=== PATIENT | female | born 1980 | race Hispanic/Latino ===

== ENCOUNTER 2017-05-26 12:19 | Emergency (ER) | payer BC ==
[2017-05-26 13:40] VITALS: BMI 29.9
--- NOTE | 2017-05-26 13:55 | OBHP ---
Datetime: 05/26/2017 13:30 IP Adm Impression: Term, intrauterine ; No Active Labor; Intact Membranes IP Chief Complaint Other: Elevated BP in officee IP Admit Plan: Observation/Evaluation Admit Comment, IP Provider: 36yo G1PO IUP @ 39w sent by PMD for elevted BP noted in office. No FOSTER; no Visual dist PMH: denies PSH: denies NKA PSOH: denies smoking ETHO drugs POBGYNH: HPV; A: IUP at 39w Hx elevated BP - currentlyt no evated BP PLAN: check labs and monitor BP> Case d/w PMD: if discharged home follow up in office this pre-eclampsia warning General - PN: Normal Presentation-Admit: Vertex FHR - Baseline A Provider: 130 Pool Provider: Negative IP Hx Assessment: The History has been Reviewed and is Current EGA AdmitDate IP: 39.2 Vital Signs Provider: Reviewed IP Chief Complaint: Other NICHD Variability Prov Fetus A: Moderate 6-25bpm NICHD Accel Fetus A IP Provider: 15X15 FHR Category Provider Fetus A: Category I NICHD Decel Fetus A IP Provider: None
[2017-05-26 14:11] LABS: HEMOGLOBIN 10.6 g/dL (12.0-16.0); MEAN CORPUSCULAR HEMOGLOBIN 28.7 pg (27.0-31.0); MEAN CORPUSCULAR HGB CONC 33.3 g/dL (33.0-37.0); RBC 3.71 Mil/uL (3.80-5.20); RED CELL DISTRIBUTION WIDTH 13.5 % (11.5-14.5); WHITE BLOOD COUNT 11.4 K/uL (4.8-10.8)
[2017-05-26 14:20] LABS: ALT/SGPT 36 U/L (9-52); AST/SGOT 23 U/L (14-36); BLOOD UREA NITROGEN 14 mg/dl (7-17); CALCIUM 8.7 mg/dL (8.4-10.2); GFR AFRICAN-AMERICAN > 60; GFR NON-AFRICAN AMERICAN > 60; URIC ACID 5.1 mg/Dl (2.2-7.5)
[2017-05-26 14:21] LABS: SQUAMOUS EPITHIAL 8 /hpf (0-5); URINE BACTERIA FEW (<OCC); URINE BILIRUBIN NEGATIVE (NEGATIVE); URINE BLOOD NEGATIVE (NEGATIVE); URINE CLARITY CLOUDY (Clear); URINE COLOR YELLOW (YELLOW); URINE GLUCOSE (UA) NEG (Normal); URINE LEUKOCYTE ESTERASE NEG Leu/uL (Negative); URINE PROTEIN 30 mg/dL (NEGATIVE); URINE UROBILINOGEN 0.2-1.0 mg/dL (0.2-1.0)
--- NOTE | 2017-05-26 15:27 | OBDCSUM ---
Datetime: 05/26/2017 15:23 Discharged to, Provider: Home Follow up at, Provider: [facility] Disch Instr Activity: Normal activity Disch Instr Diet: Regular Discharge Time: 05/26/2017 15:23 Follow up in weeks, Provider: Discharge Diagnosis Prov Other: No evideince of pre-eclampsia at 39 weeks
[2017-05-26 20:01] VITALS: BP 136/76; PULSE 56; O2SAT 95
== END 2017-05-26 15:45 | disposition home or self-care (01) ==
LOC: H.EROB2 12:19 → MERGE 12:19 → H.EROB2 15:45
DX: O13.4 Gestational [pregnancy-induced] hypertension without significant proteinuria, complicating childbirth (principal); Z3A.39 39 weeks gestation of pregnancy

== ENCOUNTER 2017-05-28 12:57 | Inpatient (IN) | payer BC ==
[2017-05-28 13:16] VITALS: BMI 29.7
[2017-05-28 15:49] LABS: BASO # 0.1 K/uL (0.0-0.2); EOS % 0.3 % (0.0-4.0); HEMOGLOBIN 10.9 g/dL (12.0-16.0); LYMPH # 1.1 K/uL (1.0-4.3); LYMPH % 11.3 % (20.0-40.0); MEAN CELL VOLUME 86.8 fl (81.0-99.0); MEAN CORPUSCULAR HEMOGLOBIN 28.8 pg (27.0-31.0); MEAN CORPUSCULAR HGB CONC 33.2 g/dL (33.0-37.0); MEAN PLATELET VOLUME 9.3 fl (7.2-11.7); MONO # 0.9 K/uL (0.0-0.8); MONO % 8.8 % (0.0-10.0); NEUT # 7.7 K/uL (1.8-7.0); NEUT % 78.6 % (50.0-75.0); NRBC % 0.1 % (0.0-0.0); RBC 3.79 Mil/uL (3.80-5.20); RED CELL DISTRIBUTION WIDTH 13.5 % (11.5-14.5); WHITE BLOOD COUNT 9.8 K/uL (4.8-10.8)
[2017-05-28 16:07] LABS: ALB/GLOB RATIO 0.9 (1.0-2.1); ALBUMIN 3.1 g/dL (3.5-5.0); ALT/SGPT 35 U/L (9-52); AST/SGOT 28 U/L (14-36); BILIRUBIN,DIRECT 0.3 mg/ml (0.0-0.4); BLOOD UREA NITROGEN 12 mg/dl (7-17); CALCIUM 8.4 mg/dL (8.4-10.2); GFR AFRICAN-AMERICAN > 60; GFR NON-AFRICAN AMERICAN > 60; URIC ACID 5.5 mg/Dl (2.2-7.5)
[2017-05-28 16:08] LABS: SQUAMOUS EPITHIAL 3 /hpf (0-5); URINE BACTERIA RARE (<OCC); URINE BILIRUBIN NEGATIVE (NEGATIVE); URINE BLOOD NEGATIVE (NEGATIVE); URINE CLARITY SLIGHTY-CLOUDY (Clear); URINE COLOR YELLOW (YELLOW); URINE GLUCOSE (UA) NEG (Normal); URINE LEUKOCYTE ESTERASE NEG Leu/uL (Negative); URINE PROTEIN 30 mg/dL (NEGATIVE); URINE UROBILINOGEN 0.2-1.0 mg/dL (0.2-1.0)
[2017-05-28] MEDS ORDERED: Lactated Ringer's 1,000 ML IV SCH (18:15)
[2017-05-28] MEDS ORDERED: Oxytocin 30 units/LR 500ML 30 U/500 ML BAG IV SCH (18:15)
[2017-05-28] MEDS ORDERED: Magnesium Sul 40GM/1L SW 40 GM/1,000 ML ML IV ONE (20:12)
[2017-05-28] MEDS ORDERED: Magnesium Sulfate 4 gm/100 ml 4 GM/100 ML BAG IV ONE (20:45)
[2017-05-28] MEDS: Lactated Ringer's 1,000 ML IV SCH (21:45)
--- NOTE | 2017-05-29 11:46 | OBPN ---
Datetime: 05/29/2017 11:42 IP Progress Impression: Gest. HTN/PreEclampsia/Eclampsia IP Informed Consent Obtain: Vaginal Delivery IP Progress Plan: Continue present management Contraction Comments Provider: q 6 mins FHR - Baseline A Provider: 120 IP Progress Note Comment: Patient evaluated, continues to have a FOSTER - VE=/60/-3. BPs 140s-150s/90s. Will restart Mg. Cervidil removed. Will start Cytotec for induction. [id number] moderate, + accels, no decels Vital Signs Provider: Reviewed; Within Normal Limits Dilatation, Provider: 1 Effacement, Provider: 60 Station, Provider: -3 NICHD Decel Fetus A IP Provider: None
--- NOTE | 2017-05-29 13:40 | OBADHP ---
Datetime: 05/29/2017 11:42 FHR - Baseline A Provider: 120 NICHD Decel Fetus A IP Provider: None Datetime: 05/28/2017 13:33 IP Chief Complaint Other: elevated BP Admit Comment, IP Provider: 36-year-old at 39 weeks and 5 days gestational age transferred to LD due to elevated blood pressures. Patient without complaints at this time. Patient observed at OB ED and labs drawn. Past medical history none Past surgical history none Medications vitamins No known drug allergies Obstetrical history Social history no tobacco, no drugs, no alcohol Assessment: 36-year-old at 39 weeks gestational age with induced hypertension. Discussed optio ns with patient, recommended induction of labor due to blood pressures. All patient questions answere d. Both maternal well-being and well-being reassuring at this time. Plan: Admit patient and start induction protocol Magnesium sulfate Cervidil placed Pelvic Type - PN: Adequate Extremities - PN: Normal Abdomen - PN: Normal Back - PN: Normal Breast - PN: Normal Lungs - PN: Normal Heart - PN: Normal Thyroid - PN: Normal Neurologic - PN: Normal HEENT - PN: Normal General - PN: Normal Membranes, Provider: Intact Contraction Comments Provider: occasional Vital Signs Provider: Reviewed; Within Normal Limits Dilatation, Provider: 0 Effacement, Provider: 50 Station, Provider: -4 Genitourinary Exam: Normal DTRs - PN: Normal IP Adm Impression: Term, intrauterine ; No Active Labor; Intact Membranes IP Admit Plan: Admit to unit; Initiate labor induction protocol
[2017-05-29] MEDS: Lactated Ringer's 1,000 ML IV SCH (15:30)
[2017-05-29 17:23] LABS: BASO # 0.1 K/uL (0.0-0.2); BASO % 0.7 % (0.0-2.0); EOS % 0.5 % (0.0-4.0); LYMPH # 1.1 K/uL (1.0-4.3); LYMPH % 11.1 % (20.0-40.0); MEAN CELL VOLUME 86.1 fl (81.0-99.0); MEAN CORPUSCULAR HEMOGLOBIN 28.2 pg (27.0-31.0); MEAN CORPUSCULAR HGB CONC 32.7 g/dL (33.0-37.0); MEAN PLATELET VOLUME 8.2 fl (7.2-11.7); MONO # 0.8 K/uL (0.0-0.8); NEUT % 79.7 % (50.0-75.0); RBC 4.26 Mil/uL (3.80-5.20); RED CELL DISTRIBUTION WIDTH 13.8 % (11.5-14.5); WHITE BLOOD COUNT 10.1 K/uL (4.8-10.8)
[2017-05-29] MEDS ORDERED: Magnesium Sul 40GM/1L SW 40 GM/1,000 ML ML IV ONE ×2 (22:40→22:46)
[2017-05-30] MEDS: Lactated Ringer's 1,000 ML IV SCH ×2 (03:58→17:25)
[2017-05-30] MEDS ORDERED: Oxytocin 30 units/LR 500ML 30 U/500 ML BAG IV ONE (13:10)
[2017-05-30] MEDS ORDERED: Nalbuphine 20 mg/ml Inj (1 ml) IVP ONE (20:55)
[2017-05-30] MEDS ORDERED: Magnesium Sul 40GM/1L SW 40 GM/1,000 ML ML IV ONE (21:48)
[2017-05-31] MEDS ORDERED: Nalbuphine 20 mg/ml Inj (1 ml) IVP ONE (01:33)
[2017-05-31] MEDS ORDERED: Lactated Ringer's 1,000 ML IV SCH (02:00)
[2017-05-31] MEDS: Lactated Ringer's 1,000 ML IV SCH ×2 (02:25→07:13)
[2017-05-31] MEDS ORDERED: Fentanyl/Bupivacaine HCl 250 ML EPI ONE (02:32)
[2017-05-31] MEDS ORDERED: Oxytocin 30 units/LR 500ML 30 U/500 ML BAG IV ONE (07:59)
[2017-05-31] MEDS ORDERED: Lidocaine 2% Inj (20ml) ONE (08:57)
--- NOTE | 2017-05-31 10:50 | OBPN ---
Datetime: 05/31/2017 10:46 IP Progress Impression: Normal progression of labor IP Informed Consent Obtain: Vaginal Delivery IP Procedures: Artificial ROM; Sterile Vag Exam IP Progress Plan: Continue present management Membranes, Provider: Ruptured Amniotic Fluid Color, Provider: Clear Contraction Comments Provider: q 4 mins FHR - Baseline A Provider: 120 IP Progress Note Comment: Patient evaluated, feeling increased pressure. VE=8/100/-1, AROM, clear fluid [id number] mod anjel, +accels, no decels TOCO = ernie q 4 mins, Pitocin @ 18 mu/min A/P 1. Patient progressing, now 8cm and AROM. Continue Pitocin for induction 2. CEFM and TOCO 3. Re-evaluate as needed NICHD Accel Fetus A IP Provider: 15X15 NICHD Variability Prov Fetus A: Moderate 6-25bpm Dilatation, Provider: 8 Effacement, Provider: 100 Station, Provider: -1 Datetime: 05/28/2017 13:33 Vital Signs Provider: Reviewed; Within Normal Limits
[2017-05-31] MEDS ORDERED: Bupivacaine HCl 0.5% PF (30 ml) Inj ONE (11:07)
--- NOTE | 2017-05-31 16:19 | OBDS ---
DELIVERY PERSONNEL Delivery Doctor: Zuleima Goodrich MD Windows Vmware Administrator: Kati Will RN Anesthesiologist: Rupa Riley MD MATERNAL INFORMATION Delivery Anesthesia: Epidural Medications in Delivery: pitocin 20 units Placenta Cultured: Yes Maternal Complications: Other Provider Comments: of live female over intact perineum, S[place]IO, 6lbs 9oz 11/01 followed by tamia alfaro and rest of , mouth and nose suctioned on abdomen, cord clamped and cut, handed off to waiting executive search consultant, cord blood obtained, placenta delivered spontaneously, fundus firm, EBL= 100mL, first degree laceration repaired with a 3-0 vicry rapide. LABOR SUMMARY EDC: 05/31/2017 00:00 No. Babies in Womb: 1 Attempted: No LABOR INFORMATION Reason for Induction: Gest. HTN/PreEclampsia/Eclampsia; Other Reason for Induction Other: Increased BP's Cervical Ripening Agents: Cytotec @ Other Ripening Agents: Cervidil placed by Dr. López at this time. Pt tolerated well. Pt verabliz ed understanding regarding bathroom restrictions at this time. Group B Beta Strep: Negative MEMBRANES Membranes Rupture Method: Artificial Rupture of Membranes: 05/31/2017 10:30 Length of Rupture (hrs): 5.43 Amniotic Fluid Color: Clear Amniotic Fluid Amount: Moderate Amniotic Fluid Odor: Normal STAGES OF LABOR Stage 3 hrs: 0 Stage 3 min: 5 VAGINAL DELIVERY Episiotomy: None Laceration Extension: First Degree Laceration Type: Perineal Laceration Repair: Yes Initial Vag Sponge Count: 5 Final Vag Sponge Count: 5 Initial Vag Sharps Count: 1 Sponge Count Correct: Yes Sharps Count Correct: Yes BABY A INFORMATION Infant Delivery Date/Time: 05/31/2017 15:56 Method of Delivery: Vaginal Born in Route : No : N/A Forceps: N/A Vacuum Extraction: N/A Shoulder Dystocia : No SHOULDER DYSTOCIA BABY A Infant Delivery Date/Time: 05/31/2017 15:56 PRESENTATION/POSITION BABY A Presentation: Cephalic Cephalic Presentation: Vertex Vertex Position: Right Occipital Anterior Breech Presentation: N/A PLACENTA INFORMATION BABY A Placenta Delivery Time : 05/31/2017 16:01 Placenta Method of Delivery: Spontaneous Placenta Status: Delivered SCORES BABY A Heart Rate 1 min: >100 bpm Resp Effort 1 min: Slow, Irregular Reflex Irritability 1 min: Cough or Sneeze or Pulls Away Muscle Tone 1 min: Active Motion Color 1 min: Body Wiseman, Extremities Blue SCORE 1 MIN: 8 Heart Rate 5 min: >100 bpm Resp Effort 5 min: Good Cry Reflex Irritability 5 min: Cough or Sneeze or Pulls Away Muscle Tone 5 min: Active Motion Color 5 min: Body Wiseman, Extremities Blue SCORE 5 MIN: 9 INFANT INFORMATION BABY A Gestational Age at Delivery: 40.0 Gestational Status: Term Infant Outcome : Liveborn Infant Condition : Stable Infant Sex: Female IDENTIFICATION/MEDS BABY A ID Band Number: [id number] ID Band Location: Left Leg; Left Arm WEIGHT/LENGTH BABY A Infant Birthweight (gms): 2980 Weight (lb): 6 Infant Weight (oz): 9 CORD INFORMATION BABY A No. Cord Vessels: 3 Nuchal Cord : N/A Cord Blood Taken: Yes Infant Suction: Mouth; Nose ASSESSMENT BABY A Infant Complications: None Physical Findings at Delivery: Caput Succedaneum Infant Respirations: Appears Normal Rug Cleaner/ALS Called : Yes
[2017-05-31] MEDS ORDERED: Oxycodone/Acetaminophen 5/325 mg Tab PO PRN ×3 (16:21→21:43)
[2017-05-31] MEDS ORDERED: Benzocaine/Menthol SPRAY TOP PRN (16:21)
[2017-05-31] MEDS ORDERED: Oxycodone/Acetaminophen 5/325 mg Tab PO ONE ×2 (19:33→21:43)
[2017-06-01] MEDS: Benzocaine/Menthol SPRAY TOP PRN (01:02)
[2017-06-01 07:37] LABS: MEAN CELL VOLUME 86.4 fl (81.0-99.0); MEAN CORPUSCULAR HEMOGLOBIN 28.5 pg (27.0-31.0); RBC 3.34 Mil/uL (3.80-5.20); RED CELL DISTRIBUTION WIDTH 13.9 % (11.5-14.5); WHITE BLOOD COUNT 14.7 K/uL (4.8-10.8)
[2017-06-01 07:51] LABS: HEMOGLOBIN 9.5 g/dL (12.0-16.0)
[2017-06-01] MEDS: Prenatal Multivit/Folic Acid/Iron Tab PO SCH (08:26)
[2017-06-01] MEDS ORDERED: Multivitamin With Minerals Tab PO SCH (09:00)
[2017-06-01] MEDS ORDERED: [UNRECOGNIZED DRUG - REMARK] PO SCH (09:00)
[2017-06-01] MEDS ORDERED: Prenatal Multivit/Folic Acid/Iron Tab PO SCH (09:00)
--- NOTE | 2017-06-01 10:23 | OBPPN ---
Datetime: 06/01/2017 10:13 PP Flatus Prov: Yes PP Breasts Prov: Normal PP Heart Prov: Normal PP Lungs Prov: Normal PP Abdomen/Uterus Prov: Normal PP Lochia Prov: Normal PP Vulva/Perineum Prov: Normal PP CVA Tenderness Prov: Normal PP Extremities Prov: Normal PP Progress Prov: Normal PP Impression Prov: Normal progression PP Plan Prov: Continue present management PP Progress Note Prov: s: tolerated reg diet. +pain @ episiotomy relieved w/ ice packs p: ice packs x24hrs percocet for pain tylenol for pain use motrin sparingly given h/o PIH. IP PP Procedures: None Vital Signs Provider PP: Reviewed
--- NOTE | 2017-06-02 09:17 | OBPPN ---
Datetime: 06/02/2017 09:13 PP Pain Prov: Within normal limits PP Nausea Prov: Denies PP Flatus Prov: Yes PP BM Prov: Yes PP Breasts Prov: Normal PP Heart Prov: Normal PP Lungs Prov: Normal PP Abdomen/Uterus Prov: Normal PP Lochia Prov: Normal PP Vulva/Perineum Prov: Normal PP CVA Tenderness Prov: Normal PP Extremities Prov: Normal PP Progress Prov: Normal PP Impression Prov: Normal progression PP Plan Prov: Discharge PP Progress Note Prov: She feels fine. Able to eat and ambualte today. H/H 11/20 A: S/P day 2 Anemia - asymptomatic PLAN: discharge home and follwo up in 6w Vital Signs Provider PP: Within Normal Limits
[2017-06-02] MEDS: Prenatal Multivit/Folic Acid/Iron Tab PO SCH (09:43)
[2017-06-02] MEDS: Benzocaine/Menthol SPRAY TOP PRN (09:48)
[2017-06-03 09:48] VITALS: BP 135/88; PULSE 84; RESP 20; TEMP 98; O2SAT 98
== END 2017-06-02 21:40 | disposition home or self-care (01) | DRG 775 ==
LOC: H.EROB2 12:57 → H.L&D 18:15 → H.OB/GYN 05-31 20:57
PROVIDERS: ADMIT Obstetrics & Gynecology; ATTEND Obstetrics & Gynecology
PROC: 4A1HXCZ Monitoring of Products of Conception, Cardiac Rate, External Approach (ICD-10-PCS; 2017-05-29)
PROC: 10E0XZZ Delivery of Products of Conception, External Approach (ICD-10-PCS; principal; 2017-05-31)
PROC: 0HQ9XZZ Repair Perineum Skin, External Approach (ICD-10-PCS; 2017-05-31)
PROC: 10907ZC Drainage of Amniotic Fluid, Therapeutic from Products of Conception, Via Natural or Artificial Opening (ICD-10-PCS; 2017-05-31)
DX: O13.4 Gestational [pregnancy-induced] hypertension without significant proteinuria, complicating childbirth (principal); O14.94 Unspecified pre-eclampsia, complicating childbirth; O70.0 First degree perineal laceration during delivery; Z37.0 Single live birth; Z3A.39 39 weeks gestation of pregnancy